=== PATIENT | male | born 1965 | race Caucasian/White ===

== ENCOUNTER 2017-01-01 13:47 | Emergency (ER) | payer BC ==
[~2017-01-01] VITALS: Ht 182.9 cm; Wt 110.9 kg
[~2017-01-01 13:47] MED LIST: ZOCOR
[2017-01-01 13:55] VITALS: TEMP 38.1; Ht 182.9 cm; Wt 110.9 kg
[2017-01-01] MEDS ORDERED: ONDANSETRON INJ 2 MG/ML 2 ML VIAL IV STA (14:09)
[2017-01-01] MEDS ORDERED: KETOROLAC TROMETHAMINE 30 MG/ML VIAL IV STA (14:09)
[2017-01-01] MEDS ORDERED: SODIUM CHLORIDE 0.9% 1000ML 1,000 ML IV STA (14:09)
[2017-01-01] MEDS ORDERED: MoRPHine SULFATE 4 MG/ML 1 ML CARP\\VIAL IV PRN (14:15)
[2017-01-01] MEDS ORDERED: RANI-316 PO (14:18)
[2017-01-01] MEDS ORDERED: IBUP-103 PO (14:18)
[2017-01-01] MEDS ORDERED: LORA10TA5 PO (14:18)
--- NOTE | 2017-01-01 14:50 | DIAGNOSTIC IMAGING REPORT ---
CHEST ONE VIEW PORTABLE CLINICAL HISTORY: ABDOMINAL PAIN/GI pain COMPARISON STUDY: No previous studies for comparison. FINDINGS: The bones soft tissues and hemidiaphragms are normal. The cardiomediastinal silhouette is normal. The lungs are clear. The pulmonary vasculature is normal. IMPRESSION: Negative chest. Electronically signed by: Donavon Mendieta M.D. 01/01/2017 2:48 PM Dictated Date/Time: 01/01/2017 2:48 PM
[2017-01-01 14:51] LABS: BASO % 0.2 %; BASO ABS # 0.01 K/uL (0-0.2); COMPLETE YES; EOS % 0.2 %; HEMATOCRIT 39.6 % (42-52); IG% 0.3 %; LYMPH % 25.5 %; LYMPH ABS # 1.64 K/uL (1.2-3.4); MEAN CELL VOLUME 86.5 fL (80-100); MEAN CORPUSCULAR HEMOGLOBIN 30.3 pg (25-34); MEAN CORPUSCULAR HGB CONC 35.1 g/dl (32-36); MEAN PLATELET VOLUME 9.4 fL (7.4-10.4); MONO % 9.2 %; NEUT % 64.6 %; PLATELET COUNT 165 K/uL (130-400); RED BLOOD COUNT 4.58 M/uL (4.7-6.1); WHITE BLOOD COUNT 6.43 K/uL (4.8-10.8)
[2017-01-01 15:02] LABS: INR 1.2 (0.9-1.1); PARTIAL THROMBOPLASTIN RATIO 1.4; PROTHROMBIN TIME (PATIENT) 12.7 SECONDS (9.0-12.0)
[2017-01-01 15:08] LABS: BUN/CREATININE RATIO 8.4 (10-20); CALCIUM 8.5 mg/dl (8.5-10.1); CREATININE 1.3 mg/dl (0.60-1.40)
--- NOTE | 2017-01-01 15:12 | DIAGNOSTIC IMAGING REPORT ---
ABDOMEN AND PELVIS CT WITHOUT CONTRAST CT DOSE: 812.30 mGy.cm HISTORY: Pain. Nausea. LLQ ABDOMINAL PAIN TECHNIQUE: Multiaxial CT images of the abdomen and pelvis were performed without contrast. COMPARISON STUDY: None. FINDINGS: Lung bases are clear. Mild hepatomegaly with components of fatty infiltration. Possible small gallstones within the gallbladder lumen. Normal caliber bile ducts. Pancreas is uniform. Spleen is uniform. The kidneys negative for calcification or hydronephrosis. Bowel pattern overall is nonobstructive. Bladder is midline. There is no significant free fluid within the pelvic cul-de-sac. IMPRESSION: 1. No acute process of the abdomen or pelvis. 2. Several small gallstones. 3. Mild hepatomegaly with fatty infiltration of liver. Electronically signed by: Donavon Mendieta M.D. 01/01/2017 3:11 PM Dictated Date/Time: 01/01/2017 3:05 PM
[2017-01-01 15:47] LABS: POTASSIUM 3.9 mmol/L (3.5-5.1)
[2017-01-01 16:13] LABS: URINE APPEARANCE CLEAR (CLEAR); URINE COLOR DK YELLOW; URINE EPITHELIAL CELL AUTO >30 /lpf (0-5); URINE NITRITE NEG (NEG); UROBILINOGEN POS (NEG); ZZUR CULT IF INDIC CLEAN CATCH NO
[2017-01-01 16:25] LABS: MANUAL MICROSCOPIC REQUIRED? NO; REVIEW REQ? NO; SULFASALICYLIC ACID NEG (NEG); URINE BILIRUBIN 1+ (NEG)
--- NOTE | 2017-01-01 16:54 | DIAGNOSTIC IMAGING REPORT ---
HEAD CT NONCONTRAST CT DOSE: HISTORY: Mental status change. Fever. headache HEAD W/O PER DR PAT RUIZ TECHNIQUE: Multiaxial CT images of the head were performed without the use of intravenous contrast. Comparison: None. Findings: The paranasal sinuses and mastoid air cells are clear. The calvarium and skull base are intact. The ventricles and sulci are within normal limits. There is no mass, hematoma, midline shift, or acute infarct. Impression: No acute intracranial abnormality. Electronically signed by: Donavon Mendieta M.D. 01/01/2017 4:53 PM Dictated Date/Time: 01/01/2017 4:52 PM
--- NOTE | 2017-01-01 16:57 | DIAGNOSTIC IMAGING REPORT ---
SINUS CT CT DOSE: HISTORY: headache, fever TECHNIQUE: Multiaxial CT images of the paranasal sinuses were performed and reformatted in the coronal plane without the use of contrast. COMPARISON: None. FINDINGS: The frontal sinuses, right ethmoid air cells, and sphenoid sinuses are clear. The right mastoid air cells are clear. There are few opacified left inferior mastoid air cells. Small amount of bubbly secretions within the floor of the left maxillary sinus. Mild mucosal thickening within the right maxillary sinus. Small amount bubbly secretions within the left posterior ethmoid air cells. The bilateral ostiomeatal units are patent. Left nasal septal deviation with a left-sided nasal spur. The orbits are unremarkable. IMPRESSION: Mild sinus disease as described above. Electronically signed by: Nba Johnson M.D. 01/01/2017 4:55 PM Dictated Date/Time: 01/01/2017 4:53 PM
[2017-01-01 16:58] LABS: CSF APPEARANCE CLEAR; CSF COLOR COLORLESS; CSF XANTHOCHROMIC NO XANTHOCHROMIA
--- NOTE | 2017-01-01 17:27 | DIAGNOSTIC IMAGING REPORT ---
ABDOMINAL ULTRASOUND, RIGHT UPPER QUADRANT HISTORY: elevated lfts. COMPARISON: Abdomen and pelvis CT 01/01/2017. FINDINGS: Pancreas: The pancreas demonstrates a normal echotexture. Liver: The liver is echogenic consistent with fatty change. The liver is enlarged. Gallbladder: There are few small gallstones. No gallbladder wall thickening. CBD: 5 mm. Right kidney: No hydronephrosis. IMPRESSION: 1. Cholelithiasis. 2. Hepatic steatosis. Hepatomegaly. Electronically signed by: Nba Johnson M.D. 01/01/2017 5:26 PM Dictated Date/Time: 01/01/2017 5:24 PM
[2017-01-01 17:30] LABS: CSF TOTAL PROTEIN 46.5 mg/dl (15.0-45.0)
[2017-01-01 17:35] LABS: CSF CHEMISTRY TUBE # 2
--- NOTE | 2017-01-01 17:39 | EMERGENCY ROOM VISIT NOTE ---
History Report prepared by Bob: Jordan Tinajero Under the Supervision of: Dr. Jamari Jaramillo D.O. First contact with patient: 13:57 Chief Complaint: HEADACHE Stated Complaint: POUNDING VILLALBA, SOB, BLURRED VISION, GROIN PAIN History of Present Illness The patient is a 51 year old male who presents to the Emergency Room with complaints of a headache that began 5 days ago. He rates his pain a 9/10 in severity. At this time, he began experiencing his headache with rhinorrhea and fatigue. He then began having a fever with diaphoresis and chills. His symptoms progressed into lower abdominal pain, shortness of breath, blurry vision, and testicular pain. He also experienced urinary symptoms when he was finished urinating. He put his pants on, and accidentally urinated himself without control. He has an enlarged testicle that he received an ultrasound for, which showed cysts on his testicle. He is supposed to recheck it in 6 months. He has been drinking a lot of fluids without relief of his thirst. He has appetite loss as well. He denies any vomiting. Source of History: patient Onset: 5 days ago Position: head Symptom Intensity: 9/10 Quality: ache Timing: constant Associated Symptoms: + SOB, + abdominal pain, + chills, + diaphoresis, + fatigue, + fevers, + urinary symptoms, No vomiting Review of Systems See HPI for pertinent positives & negatives. A total of 10 systems reviewed and were otherwise negative. Past Medical & Surgical Medical Problems: (1) GERD (gastroesophageal reflux disease) Family History Omitted secondary to age. Social History Smoking Status: Never Smoker Smokeless Tobacco Use: No Drug Use: none Marital Status: Housing Status: lives with family Current/Historical Medications Scheduled Doxycycline (Monohydrate) (Monodox), 1 CAP PO BID Ibuprofen Tab (Advil), 200-600 MG PO Q4H Loratadine (Claritin), 10 MG PO DAILY Ranitidine HCl (Acid [employer]), 1 TAB PO DAILY Allergies Coded Allergies: No Known Allergies (Unverified , 01/01/17) Physical Exam Vital Signs Date Time Temp Pulse Resp B/P Pulse Ox O2 Delivery O2 Flow Rate FiO2 01/01/17 16:39 88 18 128/75 98 Room Air 01/01/17 14:02 112 01/01/17 14:01 119 01/01/17 13:55 38.1 216 26 134/76 100 Room Air Physical Exam CONSTITUTIONAL/VITAL SIGNS: Reviewed / noted above. GENERAL: Non-toxic in appearance. INTEGUMENTARY: Warm, dry, and [place]. HEAD: Normocephalic. EYES: without scleral icterus or trauma. ENT/OROPHARYNX: clear and moist. LYMPHADENOPATHY/NECK: Is supple without lymphadenopathy or meningismus. RESPIRATORY: Lungs clear and equal. CARDIOVASCULAR: Regular rate and rhythm. GI/ABDOMEN: Sof. Tenderness to palpation of the LLQ. No organomegaly or pulsatile mass. No rebound or guarding. Normal bowel sounds. GROIN: Mild tenderness with palpation of the right scrotum. There is a second ball-like structure in the right scrotum that appears from the testicle. No evidence of hernia. This has been recently evaluated by US 1 week ago showing a cystic structure. EXTREMITIES: Warm and well perfused. BACK: No CVA tenderness. NEUROLOGICAL: Intact without focal deficits. PSYCHIATRIC: normal affect. MUSCULOSKELETAL: Normally developed with good muscle tone. Medical Decision & Procedures ER Provider Diagnostic Interpretation: Radiology results as stated below per my review and radiologist interpretation: CHEST ONE VIEW PORTABLE CLINICAL HISTORY: ABDOMINAL PAIN/GI pain COMPARISON STUDY: No previous studies for comparison. FINDINGS: The bones soft tissues and hemidiaphragms are normal. The cardiomediastinal silhouette is normal. The lungs are clear. The pulmonary vasculature is normal. IMPRESSION: Negative chest. Electronically signed by: Donavon Mendieta M.D. 01/01/2017 2:48 PM Dictated Date/Time: 01/01/2017 2:48 PM ABDOMEN AND PELVIS CT WITHOUT CONTRAST CT DOSE: 812.30 mGy.cm HISTORY: Pain. Nausea. LLQ ABDOMINAL PAIN TECHNIQUE: Multiaxial CT images of the abdomen and pelvis were performed without contrast. COMPARISON STUDY: None. FINDINGS: Lung bases are clear. Mild hepatomegaly with components of fatty infiltration. Possible small gallstones within the gallbladder lumen. Normal caliber bile ducts. Pancreas is uniform. Spleen is uniform. The kidneys negative for calcification or hydronephrosis. Bowel pattern overall is nonobstructive. Bladder is midline. There is no significant free fluid within the pelvic cul-de-sac. IMPRESSION: 1. No acute process of the abdomen or pelvis. 2. Several small gallstones. 3. Mild hepatomegaly with fatty infiltration of liver. Electronically signed by: Donavon Mendieta M.D. 01/01/2017 3:11 PM Dictated Date/Time: 01/01/2017 3:[address] DOSE: HISTORY: headache, fever TECHNIQUE: Multiaxial CT images of the paranasal sinuses were performed and reformatted in the coronal plane without the use of contrast. COMPARISON: None. FINDINGS: The frontal sinuses, right ethmoid air cells, and sphenoid sinuses are clear. The right mastoid air cells are clear. There are few opacified left inferior mastoid air cells. Small amount of bubbly secretions within the floor of the left maxillary sinus. Mild mucosal thickening within the right maxillary sinus. Small amount bubbly secretions within the left posterior ethmoid air cells. The bilateral ostiomeatal units are patent. Left nasal septal deviation with a left-sided nasal spur. The orbits are unremarkable. IMPRESSION: Mild sinus disease as described above. Electronically signed by: Nba Johnson M.D. 01/01/2017 4:55 PM Dictated Date/Time: 01/01/2017 4:[address] NON[address]AST CT DOSE: HISTORY: Mental status change. Fever. headache HEAD W/O PER DR PAT RUIZ TECHNIQUE: Multiaxial CT images of the head were performed without the use of intravenous contrast. Comparison: None. Findings: The paranasal sinuses and mastoid air cells are clear. The calvarium and skull base are intact. The ventricles and sulci are within normal limits. There is no mass, hematoma, midline shift, or acute infarct. Impression: No acute intracranial abnormality. Electronically signed by: Donavon Mendieta M.D. 01/01/2017 4:53 PM Dictated Date/Time: 01/01/2017 4:52 PM ABDOMINAL ULTRASOUND, RIGHT UPPER QUADRANT HISTORY: elevated lfts. COMPARISON: Abdomen and pelvis CT 01/01/2017. FINDINGS: Pancreas: The pancreas demonstrates a normal echotexture. Liver: The liver is echogenic consistent with fatty change. The liver is enlarged. Gallbladder: There are few small gallstones. No gallbladder wall thickening. CBD: 5 mm. Right kidney: No hydronephrosis. IMPRESSION: 1. Cholelithiasis. 2. Hepatic steatosis. Hepatomegaly. Electronically signed by: Nba Johnson M.D. 01/01/2017 5:26 PM Dictated Date/Time: 01/01/2017 5:24 PM Laboratory Results 01/01/17 14:35 Red Blood Count 4.58, Mean Corpuscular Volume 86.5, Mean Corpuscular Hemoglobin 30.3, Mean Corpuscular Hemoglobin Concent 35.1, Mean Platelet Volume 9.4, Neutrophils (%) (Auto) 64.6, Lymphocytes (%) (Auto) 25.5, Monocytes (%) (Auto) 9.2, Eosinophils (%) (Auto) 0.2, Basophils (%) (Auto) 0.2, Neutrophils # (Auto) 4.16, Lymphocytes # (Auto) 1.64, Monocytes # (Auto) 0.59, Eosinophils # (Auto) 0.01, Basophils # (Auto) 0.01 01/01/17 14:35 Test 01/01/17 14:35 01/01/17 14:43 01/01/17 15:58 01/01/17 16:25 White Blood Count 6.43 K/uL (4.8-10.8) Red Blood Count 4.58 M/uL (4.7-6.1) Hemoglobin 13.9 g/dL (14.0-18.0) Hematocrit 39.6 % (42-52) Mean Corpuscular Volume 86.5 fL (80-100) Mean Corpuscular Hemoglobin 30.3 pg (25-34) Mean Corpuscular Hemoglobin Concent 35.1 g/dl (32-36) Platelet Count 165 K/uL (130-400) Mean Platelet Volume 9.4 fL (7.4-10.4) Neutrophils (%) (Auto) 64.6 % Lymphocytes (%) (Auto) 25.5 % Monocytes (%) (Auto) 9.2 % Eosinophils (%) (Auto) 0.2 % Basophils (%) (Auto) 0.2 % Neutrophils # (Auto) 4.16 K/uL (1.4-6.5) Lymphocytes # (Auto) 1.64 K/uL (1.2-3.4) Monocytes # (Auto) 0.59 K/uL (0.11-0.59) Eosinophils # (Auto) 0.01 K/uL (0-0.5) Basophils # (Auto) 0.01 K/uL (0-0.2) RDW Standard Deviation 41.5 fL (36.4-46.3) RDW Coefficient of Variation 13.1 % (11.5-14.5) Immature Granulocyte % (Auto) 0.3 % Immature Granulocyte # (Auto) 0.02 K/uL (0.00-0.02) Prothrombin Time 12.7 SECONDS (9.0-12.0) Prothromb Time International Ratio 1.2 (0.9-1.1) Activated Partial Thromboplast Time 36.7 SECONDS (21.0-31.0) Partial Thromboplastin Ratio 1.4 Anion Gap 11.0 mmol/L (3-11) Est Creatinine Clear Calc Drug Dose 87.4 ml/min Estimated GFR () 73.7 Estimated GFR (Non- 63.6 BUN/Creatinine Ratio 8.4 (10-20) Calcium Level 8.5 mg/dl (8.5-10.1) Total Bilirubin 2.3 mg/dl (0.2-1) Direct Bilirubin 0.9 mg/dl (0-0.2) Aspartate Amino Transf (AST/SGOT) 230 U/L (15-37) Alanine Aminotransferase (ALT/SGPT) 323 U/L (12-78) Alkaline Phosphatase 146 U/L (45-117) Total Protein 7.5 gm/dl (6.4-8.2) Albumin 3.7 gm/dl (3.4-5.0) Lipase 597 U/L (73-393) Hepatitis B Surface Antigen NEG (NEG) Hepatitis C Antibody NEG (NEG) Bedside Lactic Acid Venous 1.53 mmol/L (0.90-1.70) Urine Color DK YELLOW Urine Appearance CLEAR (CLEAR) Urine pH 8.0 (4.5-7.5) Urine Specific [place] 1.020 (1.000-1.030) Urine Protein NEG (NEG) Urine Glucose (UA) NEG (NEG) Urine Ketones TRACE (NEG) Urine Occult Blood NEG (NEG) Urine Nitrite NEG (NEG) Urine Bilirubin 1+ (NEG) Urine Urobilinogen POS (NEG) Urine Leukocyte Esterase SMALL (NEG) Urine WBC (Auto) 5-10 /hpf (0-5) Urine RBC (Auto) 0-4 /hpf (0-4) Urine Hyaline Casts (Auto) 1-5 /lpf (0-5) Urine Epithelial Cells (Auto) >30 /lpf (0-5) Urine Bacteria (Auto) NEG (NEG) CSF Color COLORLESS CSF Appearance CLEAR CSF WBC 0 /uL (0-5) CSF RBC 0 /uL (0) CSF Xanthrochromic NO XANTHOCHROMIA CSF Cell Count Tube # 4 CSF Chemistry Tube # 2 CSF Glucose 60 mg/dl (40-70) CSF Total Protein 46.5 mg/dl (15.0-45.0) Laboratory results as stated above per my review. Medications Administered Medications (Trade) Dose Ordered Sig/Tish Route Start Time Stop Time Status Last Admin Dose Admin Sodium Chloride (Nss 1000ml) 1,000 ml @ 999 mls/hr Q1H1M STAT IV 01/01/17 14:09 01/01/17 15:09 DC 01/01/17 14:48 999 MLS/HR Ondansetron HCl (Zofran Inj) 4 mg NOW STAT IV 01/01/17 14:09 01/01/17 14:16 DC 01/01/17 14:47 4 MG Ketorolac Tromethamine (Toradol Inj) 30 mg NOW STAT IV 01/01/17 14:09 01/01/17 14:16 DC 01/01/17 14:47 30 MG Morphine Sulfate (MoRPHine SULFATE INJ) 4 mg Q1H PRN IV 01/01/17 14:15 01/15/17 14:14 01/01/17 14:47 4 MG Procedure Lumbar Puncture Indication: Fever and Headache. Verbal consent was obtained after the risks and benefits were explained, including but not limited to headache, bleeding/clotting, scarring, infection, pain, and bone/joint/nerve damage. At this time, the risks of the procedure are less than the risks of NOT performing the procedure. A time out was taken and the correct patient and site identified. The patient was placed in the left lateral recumbent position and the back was prepped with betadine and draped in the standard fashion. The L3 intervertebral space was identified, anesthetized locally with 1% lidocaine without epinephrine, and the spinal needle was inserted through the skin with the bevel parallel to the dural fibers. The needle was carefully advanced into the lumbar cistern and 4 tubes of clear CSF was obtained. The stylet was replaced and the needle was removed. A bandaid was placed and the patient was placed in the supine position. The patient tolerated the procedure well and there were no complications. ED Course 1357: Previous medical records were reviewed. The patient was evaluated in room A10. A complete history and physical examination was performed. 1409: Ordered Toradol Inj 30 mg IV, Zofran Inj 4 mg IV, Sodium Chloride 1000 ml @ 999 mls/hr IV 1415: Ordered Morphine Sulfate 4 mg IV 1630: I performed a lumbar puncture procedure at this time. Please see the procedure note for more detail. 1740: On reevaluation, the patient is resting. I discussed the results and findings with the patient. He verbalized agreement of the treatment plan. He was discharged home. Medical Decision Differential considered: pancreatitis, hepatitis, or acute cholecystitis, AAA, UTI, pyelonephritis, kidney stones, appendicitis, diverticulitis, shingles, bowel obstruction mesenteric ischemia, intussusception,hernia, testicular torsion. This is a 51-year-old male who presents to the ED with a chief complaint of lower abdominal pain and headache that started about 3 days ago. The patient reports that he has been having subjective fevers and chills. He is also had a runny nose and some shortness of breath. The patient states that he has been having some difficulty with urination. He states that he attempts to urinate and has some difficulty and then when he is going away from the bathroom, he has uncontrolled urination. He has been feeling tired. The patient reports lower abdominal pain along the belt line primarily on the left. He has a fever of 38.1. He is tachycardic. There is no meningismus or photosensitivity. Clinically does not look like he has meningitis. The lungs are clear. Abdomen is very tender in the left lower quadrant. Scrotal exam reveals some mild discomfort in the right and there is a ball-like mass in addition to the testicle that is present. This is been recently evaluated on ultrasound showing a cystic structure. The patient does have urology follow-up for this the patient's chest x-ray was negative for acute disease. CBC is normal. CT scan of the brain is negative for acute disease. A CT scan of the sinuses reveals mild sinus disease. CT scan of the abdomen and pelvis did not show any acute process. There was gallstones. A chest x-ray was negative for acute disease. Gallbladder ultrasound reveals cholelithiasis and hepatic steatosis. INR is 1.2. The patient's chemistry panel revealed normal electrolytes. Lactic acid was normal. Total bilirubin was elevated at 2.3. AST is 230, ALT is 323, alkaline phosphatase is 146. Lipase was mildly elevated. Urine did not show infection. A lumbar puncture was performed and did not show evidence of meningitis. Hepatitis panel is pending with exception of hepatitis B antigen was negative. The patient was told results the test. His symptoms are rather diffuse although he appears to have acute hepatitis. The exact cause of this is unclear. It could be viral in origin. The patient was felt to be stable for discharge and outpatient follow-up with PCP. He was told to avoid alcohol and Tylenol. Impression Primary Impression: Acute hepatitis Additional Impression: Lyme disease Scribe Attestation The scribe's documentation has been prepared under my direction and personally reviewed by me in its entirety. I confirm that the note above accurately reflects all work, treatment, procedures, and medical decision making performed by me. Departure Information Dispostion Home / Self-Care Prescriptions Doxycycline (Monohydrate) (MONODOX) 100 Mg Cap 1 CAP PO BID for 28 Days, #56 CAP Prov: Jamari Jaramillo D.O. 01/01/17 Referrals Kalpesh Thomas M.D. (PCP) Forms HOME CARE DOCUMENTATION FORM, IMPORTANT VISIT INFORMATION Patient Instructions ED Hepatitis Cause Unkn Test Pen, My [facility] [place] [facility] Additional Instructions Your test results today suggest that you have acute hepatitis. The exact etiology of this is unclear at this time. This could be viral in origin. Follow-up with your doctor for further evaluation of your symptoms. Avoid alcohol and Tylenol. Drink plenty of fluids and get rest. Use ibuprofen for fever or pain. Call your doctor Wednesday for follow-up next week. Return for significant worsening or new concerns. Problem Qualifiers
[2017-01-01] MEDS ORDERED: DOXY100C41 PO (18:05)
[2017-01-01] MEDS ORDERED: DOXYCYCLINE HYCLATE 100 MG CAP PO ONE (18:09)
[2017-01-01 18:14] VITALS: BP 138/76; PULSE 83; O2SAT 99
[2017-01-01] MEDS ORDERED: DOXYCYCLINE HYCLATE 50 MG CAP PO ONE (18:15)
[2017-01-05 01:29] LABS: LYME DNA PCR CSF OR SYNOVIAL Not detected (Not Detected); LYME DNA SOURCE CSF
[2017-01-08 11:27] LABS: 18KDIGG BAND NONREACTIVE (NONREACTIVE); 23KDIGG BAND NONREACTIVE (NONREACTIVE); 23KDIGM BAND REACTIVE (NONREACTIVE); 28KDIGG BAND NONREACTIVE (NONREACTIVE); 30KDIGG BAND NONREACTIVE (NONREACTIVE); 39KDIGG BAND NONREACTIVE (NONREACTIVE); 39KDIGM BAND NONREACTIVE (NONREACTIVE); 41KDIGG BAND NONREACTIVE (NONREACTIVE); 41KDIGM BAND NONREACTIVE (NONREACTIVE); 45KDIGG BAND NONREACTIVE (NONREACTIVE); 58KDIGG BAND NONREACTIVE (NONREACTIVE); 66KDIGG BAND NONREACTIVE (NONREACTIVE); 93KDIGG BAND NONREACTIVE (NONREACTIVE)
== END 2017-01-01 18:16 | disposition home or self-care (01) ==
LOC: C.EDB 13:50 → C.EDA 18:16
DX: K75.9 Inflammatory liver disease, unspecified (principal); A69.20 Lyme disease, unspecified; K21.9 Gastro-esophageal reflux disease without esophagitis